=== PATIENT | female | born 1970 | race Caucasian/White ===

== ENCOUNTER 2023-03-23 07:02 | Observation (INO) | payer OTHER ==
[~2023-03-23] VITALS: Ht 167.6 cm; Wt 85.5 kg
[~2023-03-23 07:02] MED LIST: CLIMARA 0.1 PATCH.W1 TD; NORCO 325 MG-51 TAB PO; PYRIDIUM 100MG100 MG PO; ZOFRAN ODT4 MG PO
[2023-03-23 07:24] LABS: BASO % 0.5 % (0.0-2.0); EOS # 0.1 K/mm3 (0.0-0.7); EOS % 2.3 % (0.0-4.0); GRAN # 3.5 K/mm3 (1.4-6.5); GRAN % 57.8 % (42.2-75.2); HEMATOCRIT 38.9 % (37.0-47.0); HEMOGLOBIN 13.5 g/dl (12.5-16.0); LYMPH # 1.9 K/mm3 (1.2-3.4); LYMPH % 31.4 % (20.0-51.0); MEAN CELL VOLUME 93 fl (80.0-100.0); MEAN CORPUSCULAR HEMOGLOBIN 32 pg (27-31); MEAN CORPUSCULAR HGB CONC 35 g/dl (33.0-37.0); MONO # 0.5 K/mm3 (0.1-0.6); MONO % 7.8 % (1.7-9.3); PLATELET COUNT 214 K/mm3 (130-400); RED BLOOD COUNT 4.18 M/mm3 (4.10-5.30)
[2023-03-23 07:44] LABS: ALBUMIN 3.7 gm/dL (3.5-5.0); C-REACTIVE PROTEIN 0.04 mg/dL (0.00-0.50); CALCIUM 8.9 mg/dL (8.4-10.2); CREATININE, serum 0.84 mg/dL (0.57-1.11); POTASSIUM 3.6 mmol/L (3.5-4.5); TOTAL PROTEIN 6.6 gm/dL (6.2-8.1)
--- NOTE | 2023-03-23 09:55 | NUR ---
pt admitted to floor from ED. pt a&ox4. vss. admission assessment and med rec complete. pt urine yellow and clear. fluids infusing into left ac. pt oriented to room. pt denies pain after receiving pain medication in the ED. pt denies needs at this time. call light in reach.
[2023-03-23 10:02] VITALS: BP 143/76; PULSE 71; TEMP 98.5
[2023-03-23 10:54] LABS: COLLECTION METHOD CLEAN CATCH
[2023-03-23 11:20] VITALS: BP 129/75; PULSE 70; TEMP 98
[2023-03-23 11:26] LABS: URINE APPEARANCE Clear (CLEAR/HAZY); URINE BLOOD 2+ (NEGATIVE); URINE COLOR Yellow (YELLOW); URINE GLUCOSE Negative (NEGATIVE); URINE KETONE Negative (NEGATIVE); URINE NITRATE Negative (NEGATIVE); URINE PROTEIN(semi-quant) Negative (NEGATIVE); URINE UROBILINOGEN 0.2 E.U/dL (0.2-1.0)
[2023-03-23 11:27] LABS: SQUAMOUS EPITHELIAL 0-2 /hpf (0-10)
[2023-03-23 13:13] VITALS: BP_SYST 129
[2023-03-23] MEDS ORDERED: PERCOCET 325 MG1 TA2 PO (14:30)
--- NOTE | 2023-03-23 15:15 | NUR ---
discharge instructions given to pt. escorted pt and family to personal vehicle.
== END 2023-03-23 15:15 | disposition home or self-care (01) ==
LOC: COL.ER 07:02 → SURG 09:16
PROVIDERS: Family Medicine; ADMIT Urology
DX: N20.1 Calculus of ureter (principal)
CPT/HCPCS: G0378; J1170; J1790; J1885; J2270; J2405; J7030; J7120; Q9967